=== PATIENT | female | born 1945 | race Two or more races ===

== ENCOUNTER 2018-05-22 15:49 | Inpatient (IN) | payer OTHER ==
[~2018-05-22] VITALS: Ht 162.6 cm; Wt 90.7 kg
[~2018-05-22 15:49] MED LIST: AMOXICILLIN500 MG; KETO10TA2 PO; NEURONTIN300 MG; ORPH100T PO; SYNTHROID88 MCG
== END 2018-05-31 17:19 | disposition home or self-care (01) | DRG 203 ==
LOC: ER 15:49 → SURG 21:12 → SEC-K 21:12 → SURG 21:42 → SURH 05-25 21:35
PROC: 3E0F7GC Introduction of Other Therapeutic Substance into Respiratory Tract, Via Natural or Artificial Opening (ICD-10-PCS; principal; 2018-05-22)
PROC: BW28ZZZ Computerized Tomography (CT Scan) of Head (ICD-10-PCS; 2018-05-22)
PROC: 8E0ZXY6 Isolation (ICD-10-PCS; 2018-05-23)
DX: J45.41 Moderate persistent asthma with (acute) exacerbation (principal); B34.9 Viral infection, unspecified; M54.2 Cervicalgia; M54.5 Low back pain; J20.9 Acute bronchitis, unspecified

== ENCOUNTER 2019-05-09 11:17 | Outpatient (CLI) | payer OTHER | END 2019-05-09 13:00 | disposition home or self-care (01) | LOC: RAD 11:17 | DX: J18.0 Bronchopneumonia, unspecified organism (principal); J45.901 Unspecified asthma with (acute) exacerbation ==

== ENCOUNTER 2019-05-09 14:56 | Emergency (ER) | payer OTHER ==
[~2019-05-09] VITALS: Ht 167.6 cm; Wt 90.7 kg
== END 2019-05-09 18:17 | disposition home or self-care (01) ==
LOC: ER 14:56
DX: J40 Bronchitis, not specified as acute or chronic (principal); J32.8 Other chronic sinusitis; B34.9 Viral infection, unspecified

== ENCOUNTER 2021-04-23 08:08 | Outpatient (CLI) | payer OTHER | END 2021-04-23 08:09 | disposition home or self-care (01) | LOC: SONOGRAMA 08:08 | PROVIDERS: ATTEND Specialist | DX: M65.272 Calcific tendinitis, left ankle and foot (principal); S93.402A Sprain of unspecified ligament of left ankle, initial encounter; M19.072 Primary osteoarthritis, left ankle and foot ==

== ENCOUNTER 2021-06-27 09:38 | Emergency (ER) | payer OTHER ==
[~2021-06-27] VITALS: Ht 167.6 cm; Wt 90.7 kg
[2021-06-27] MEDS ORDERED: HYDROXYUREA500 MG PO (10:31)
[2021-06-27] MEDS ORDERED: KETO10TA2 PO (14:14)
[2021-06-27] MEDS ORDERED: PEPCID AC20 MG PO (14:14)
== END 2021-06-27 15:01 | disposition home or self-care (01) ==
LOC: ER 09:38
DX: B34.9 Viral infection, unspecified (principal); Z03.818 Encounter for observation for suspected exposure to other biological agents ruled out; R53.81 Other malaise; R51.9 Headache, unspecified

== ENCOUNTER 2021-07-24 12:18 | Outpatient (CLI) | payer OTHER ==
[~2021-07-24 12:18] MED LIST changes: +HYDROXYUREA500 MG PO; +PEPCID AC20 MG PO
== END 2021-07-24 12:24 | disposition home or self-care (01) ==
LOC: SONOGRAMA 12:18 → MAMO-SONO 08-06 10:15
PROVIDERS: ATTEND Specialist
DX: S93.412A Sprain of calcaneofibular ligament of left ankle, initial encounter (principal); S93.401A Sprain of unspecified ligament of right ankle, initial encounter

== ENCOUNTER 2021-09-26 07:36 | Outpatient (CLI) | payer OTHER | END 2021-09-26 07:38 | disposition home or self-care (01) | LOC: NUCLEAR 07:36 | PROVIDERS: ATTEND Internal Medicine Cardiovascular Disease | DX: I20.1 Angina pectoris with documented spasm (principal); I20.8 Other forms of angina pectoris | CPT/HCPCS: 78452; 93017; A9500 ==

== ENCOUNTER 2021-09-30 10:43 | Outpatient (CLI) | payer OTHER | END 2021-09-30 10:44 | disposition home or self-care (01) | LOC: NUCLEAR 10:43 | PROVIDERS: ATTEND Internal Medicine Pulmonary Disease | DX: I26.09 Other pulmonary embolism with acute cor pulmonale (principal) | CPT/HCPCS: 78580; A9540 ==

== ENCOUNTER 2022-02-23 08:58 | Outpatient (CLI) | payer OTHER | END 2022-02-23 09:15 | disposition home or self-care (01) | LOC: TOM 08:58 | PROVIDERS: ATTEND Internal Medicine Cardiovascular Disease | DX: J44.9 Chronic obstructive pulmonary disease, unspecified (principal); I27.29 Other secondary pulmonary hypertension | CPT/HCPCS: 71260; Q9965 ==

== ENCOUNTER 2022-06-03 07:44 | Outpatient (CLI) | payer OTHER | END 2022-06-03 07:45 | disposition home or self-care (01) | LOC: NUCLEAR 07:44 | PROVIDERS: ATTEND Internal Medicine Pulmonary Disease | DX: R91.1 Solitary pulmonary nodule (principal); J45.909 Unspecified asthma, uncomplicated; Z88.5 Allergy status to narcotic agent | CPT/HCPCS: 78815; A9552 ==

== ENCOUNTER 2023-03-23 12:10 | Outpatient (CLI) | payer OTHER | END 2023-03-23 12:14 | disposition home or self-care (01) | LOC: LAB 12:10 | PROVIDERS: ATTEND Specialist | DX: L92.9 Granulomatous disorder of the skin and subcutaneous tissue, unspecified (principal) ==

== ENCOUNTER 2023-03-30 08:44 | Outpatient (CLI) | payer OTHER | END 2023-03-30 08:54 | disposition home or self-care (01) | LOC: TOM 08:44 | PROVIDERS: ATTEND Specialist | DX: J84.10 Pulmonary fibrosis, unspecified (principal) ==

== ENCOUNTER 2023-06-21 12:29 | Emergency (ER) | payer OTHER ==
[~2023-06-21] VITALS: Ht 170.2 cm; Wt 90.7 kg
== END 2023-06-22 00:42 | disposition home or self-care (01) ==
LOC: ER 12:29
PROVIDERS: Emergency Medicine; General Practice
DX: N39.0 Urinary tract infection, site not specified (principal); B34.9 Viral infection, unspecified; Z88.8 Allergy status to other drugs, medicaments and biological substances; E03.9 Hypothyroidism, unspecified; J84.10 Pulmonary fibrosis, unspecified; E86.0 Dehydration; N18.9 Chronic kidney disease, unspecified; Z20.822 Contact with and (suspected) exposure to COVID-19
CPT/HCPCS: 36415; 71046; 76705; 96365; 99284; J0696; J7030

== ENCOUNTER 2023-06-23 07:45 | Inpatient (IN) | payer OTHER ==
[~2023-06-23] VITALS: Ht 167.6 cm; Wt 90.7 kg
== END 2023-06-24 22:23 | disposition home or self-care (01) | DRG 812 ==
LOC: SEC-K 07:45 → MEDI 07:45
PROVIDERS: ADMIT Internal Medicine Hematology & Oncology; ATTEND Internal Medicine Hematology & Oncology
PROC: 30233N1 Transfusion of Nonautologous Red Blood Cells into Peripheral Vein, Percutaneous Approach (ICD-10-PCS; principal; 2023-06-23)
DX: D64.9 Anemia, unspecified (principal); D57.3 Sickle-cell trait; Z20.822 Contact with and (suspected) exposure to COVID-19; E03.9 Hypothyroidism, unspecified

== ENCOUNTER 2025-04-11 13:29 | Outpatient (CLI) | payer OTHER | END 2025-04-11 13:31 | disposition home or self-care (01) | LOC: SONOGRAMA 13:29 | DX: M72.2 Plantar fascial fibromatosis (principal) ==